=== PATIENT | female | born 1975 | race Caucasian/White ===

== ENCOUNTER 2022-03-27 12:10 | Day surgery (SDC) | payer OTHER ==
[2022-03-22 15:22] VITALS: BMI 20.9
[2022-03-27] MEDS ORDERED: PROPOFOL 40 ML ONE (13:48)
[2022-03-27 14:45] VITALS: BP 113/72; PULSE 66; RESP 18; TEMP 98
== END 2022-03-27 14:45 | disposition home or self-care (01) ==
LOC: FASU-ENDO 12:10
PROVIDERS: ATTEND Internal Medicine Gastroenterology
PROC: 0DB78ZX Excision of Stomach, Pylorus, Via Natural or Artificial Opening Endoscopic, Diagnostic (ICD-10-PCS; 2022-03-27)
PROC: 0DB28ZX Excision of Middle Esophagus, Via Natural or Artificial Opening Endoscopic, Diagnostic (ICD-10-PCS; 2022-03-27)
PROC: 0DB48ZX Excision of Esophagogastric Junction, Via Natural or Artificial Opening Endoscopic, Diagnostic (ICD-10-PCS; 2022-03-27)
PROC: 0DB98ZX Excision of Duodenum, Via Natural or Artificial Opening Endoscopic, Diagnostic (ICD-10-PCS; principal; 2022-03-27 14:04)
DX: K29.70 Gastritis, unspecified, without bleeding (principal); K21.00 Gastro-esophageal reflux disease with esophagitis, without bleeding; K22.70 Barrett's esophagus without dysplasia
CPT/HCPCS: 81025; 88305-TC; 88342-TC

== ENCOUNTER 2022-07-06 12:50 | Day surgery (SDC) | payer OTHER ==
[2022-07-03 15:52] VITALS: BMI 20.2
[2022-07-06 14:25] VITALS: TEMP 98.2
[2022-07-06 14:39] VITALS: BP 110/69; PULSE 67; RESP 20
== END 2022-07-06 14:35 | disposition home or self-care (01) ==
LOC: FASU-ENDO 12:50
PROVIDERS: ATTEND Internal Medicine Gastroenterology
PROC: 0DBL8ZX Excision of Transverse Colon, Via Natural or Artificial Opening Endoscopic, Diagnostic (ICD-10-PCS; 2022-07-06)
PROC: 0DBM8ZX Excision of Descending Colon, Via Natural or Artificial Opening Endoscopic, Diagnostic (ICD-10-PCS; 2022-07-06)
PROC: 0DBK8ZX Excision of Ascending Colon, Via Natural or Artificial Opening Endoscopic, Diagnostic (ICD-10-PCS; principal; 2022-07-06 13:25)
DX: Z12.11 Encounter for screening for malignant neoplasm of colon (principal); K64.1 Second degree hemorrhoids; K29.50 Unspecified chronic gastritis without bleeding; K21.00 Gastro-esophageal reflux disease with esophagitis, without bleeding; R19.7 Diarrhea, unspecified
CPT/HCPCS: 81025; 88305-TC; 88342-TC